=== PATIENT | female | born 1940 | race Caucasian/White ===

== ENCOUNTER 2020-06-19 11:40 | Emergency (ER) | payer OTHER ==
[~2020-06-19] VITALS: Ht 152.4 cm; Wt 53.1 kg
[2020-06-19] MEDS ORDERED: SYNTHROID88 MCG PO (12:12)
[2020-06-19] MEDS ORDERED: BONIVA150 MG PO (12:13)
[2020-06-19] MEDS ORDERED: KETO10TA2 PO (15:07)
[2020-06-19] MEDS ORDERED: PEPCID AC20 MG PO (15:07)
== END 2020-06-19 16:08 | disposition home or self-care (01) ==
LOC: ER 11:40
DX: S52.591A Other fractures of lower end of right radius, initial encounter for closed fracture (principal); W18.39XA Other fall on same level, initial encounter; Y93.89 Activity, other specified; Y92.098 Other place in other non-institutional residence as the place of occurrence of the external cause; Y99.8 Other external cause status; E03.8 Other specified hypothyroidism

== ENCOUNTER 2020-06-23 13:00 | Day surgery (SDC) | payer OTHER ==
[~2020-06-23 13:00] MED LIST changes: -ULTRAM50 MG PO
[2020-06-23] MEDS ORDERED: ULTRAM50 MG PO (17:17)
== END 2020-06-23 19:20 | disposition home or self-care (01) ==
LOC: CIR.AMB 13:00
PROVIDERS: ATTEND Orthopaedic Surgery
DX: S52.572A Other intraarticular fracture of lower end of left radius, initial encounter for closed fracture (principal); M24.532 Contracture, left wrist; Z20.828 Contact with and (suspected) exposure to other viral communicable diseases
CPT/HCPCS: 20902; 25280; 25609; C1776

== ENCOUNTER → 2020-06-23 | Emergency (ER) | payer OTHER ==
[~2020-06-23] MED LIST: BONIVA150 MG PO; KETO10TA2 PO; PEPCID AC20 MG PO; SYNTHROID88 MCG PO; ULTRAM50 MG PO
== END | disposition left against medical advice (07) ==
LOC: ER 07:09
DX: Z53.20 Procedure and treatment not carried out because of patient's decision for unspecified reasons (principal)

== ENCOUNTER 2023-12-19 14:04 | Outpatient (CLI) | payer OTHER ==
[~2023-12-19 14:04] MED LIST changes: +ULTRAM50 MG PO
== END 2023-12-19 14:05 | disposition home or self-care (01) ==
LOC: NUCLEAR 14:04
PROVIDERS: ATTEND Internal Medicine
DX: I87.2 Venous insufficiency (chronic) (peripheral) (principal)

== ENCOUNTER 2025-05-24 08:13 | Outpatient (CLI) | payer OTHER | END 2025-05-24 08:19 | disposition home or self-care (01) | LOC: MRI 08:13 | PROVIDERS: ATTEND Internal Medicine | DX: M54.17 Radiculopathy, lumbosacral region (principal) | CPT/HCPCS: 72148 ==

== ENCOUNTER 2025-05-24 10:27 | Outpatient (CLI) | payer OTHER | END 2025-05-24 10:29 | disposition home or self-care (01) | LOC: NUCLEAR 10:27 | PROVIDERS: ATTEND Internal Medicine | DX: I87.2 Venous insufficiency (chronic) (peripheral) (principal); I70.0 Atherosclerosis of aorta ==

== ENCOUNTER → 2025-05-27 | Outpatient (CLI) | payer OTHER | END | disposition home or self-care (01) | LOC: NUCLEAR 09:40 | PROVIDERS: ATTEND Internal Medicine | DX: I87.2 Venous insufficiency (chronic) (peripheral) (principal) ==